=== PATIENT | male | born 1950 | race Caucasian/White ===

== ENCOUNTER → 2024-07-15 | Day surgery (SDC) | payer MEDICARE, BC ==
[~2024-07-15] MED LIST: Balanced Salt Ophth Irrig 15 ML BOTTLE *BULK OP SCH; Cyclopentolate 2% Ophth Soln 1 BOTTLE *BULK OP SCH; EPINEPHrine 1 MG/ML (1:1000) 1 ML AMP IR SCH; Ketorolac 0.5% Ophth Soln 5 ML Bottle *BULK OP SCH; Midazolam 2 MG/2 ML VIAL IV ONE; Phenylephrine 10% Ophth Soln 5 ML BOTTLE *BULK OP SCH; Polymyxin B Sulfate/Trimethoprim Ophth Soln 10 ML BOTTLE *BULK OP SCH; Povidone Iodine 5% Ophth Soln 30 ML BOTTLE *BULK OP SCH; Proparacaine 0.5% Ophth Soln 15 ML BOTTLE *BULK OP SCH; Tropicamide 1% Ophth Soln Bottle *BULK OP SCH
== END ==
LOC: EDSTATUS 08:14 → MSO 08:18
DX: H25.11 Age-related nuclear cataract, right eye (principal); F17.290 Nicotine dependence, other tobacco product, uncomplicated; Z85.9 Personal history of malignant neoplasm, unspecified
CPT/HCPCS: 00142; J0171; J2250; V2632